=== PATIENT | male | born 1965 | race Two or more races ===

== ENCOUNTER 2021-07-09 07:04 | Day surgery (SDC) | payer OTHER ==
[2021-07-08 13:44] VITALS: BMI 28.3
[2021-07-09] MEDS ORDERED: LIDOCAINE HCL/PF 2% SDV 5ML VIAL ONE (07:44)
[2021-07-09] MEDS ORDERED: PROPOFOL 20 ML ONE ×4 (07:44)
[2021-07-09 09:52] VITALS: BP 146/85; PULSE 59; TEMP 97.9
== END 2021-07-09 09:53 | disposition home or self-care (01) ==
LOC: FASU-ENDO 07:04
PROVIDERS: ATTEND Internal Medicine Gastroenterology
PROC: 0DB98ZX Excision of Duodenum, Via Natural or Artificial Opening Endoscopic, Diagnostic (ICD-10-PCS; 2021-07-09)
PROC: 0DB68ZX Excision of Stomach, Via Natural or Artificial Opening Endoscopic, Diagnostic (ICD-10-PCS; 2021-07-09)
PROC: 0DB58ZX Excision of Esophagus, Via Natural or Artificial Opening Endoscopic, Diagnostic (ICD-10-PCS; 2021-07-09)
PROC: 0DBN8ZX Excision of Sigmoid Colon, Via Natural or Artificial Opening Endoscopic, Diagnostic (ICD-10-PCS; principal; 2021-07-09 08:26)
DX: Z12.11 Encounter for screening for malignant neoplasm of colon (principal); K63.5 Polyp of colon; K29.80 Duodenitis without bleeding; K29.50 Unspecified chronic gastritis without bleeding; K21.00 Gastro-esophageal reflux disease with esophagitis, without bleeding; B96.81 Helicobacter pylori [H. pylori] as the cause of diseases classified elsewhere; Z86.010 Personal history of colon polyps
CPT/HCPCS: 88305-TC; 88342-TC